=== PATIENT | male | born 1975 ===

== ENCOUNTER 2017-04-06 19:11 | Emergency (ER) | payer SELFPAY ==
[~2017-04-06] VITALS: Ht 172.7 cm; Wt 154.2 kg
[2017-04-06 19:18] VITALS: BP 166/108
[2017-04-06] MEDS ORDERED: MECL25TA27 PO (19:18)
--- NOTE | 2017-04-06 19:23 | ER Report ---
History and Physical Time Seen By MD: 19:23 Hx. of Stated Complaint: LEFT SIDED HEADACHE HPI/ROS CHIEF COMPLAINT: Headache HISTORY OF PRESENT ILLNESS: This is a 41-year-old male who presents to the emergency department with his for a left-sided headache. Patient states that over the last 2-3 months he's had this intermittent left-sided headache and dental pain and sinus pain. Patient states that he works in the [employer] and had a dentist to evaluate for possible infection and other dental issues which they said that he had none. Patient also states that he was seen by me in urgent care and thought maybe he had a sinus infection but doesn't sound like any imaging studies were done. Patient states tonight he woke up about 2 hours prior to arrival with a pretty severe left-sided headache wraps up on the top of his left scalp he points to pain along the temporal region. Patient states that he also has some sinus pressure. Patient denies nausea, vomiting, diarrhea , aches, chills or shortness of breath. REVIEW OF SYSTEMS: Constitutional: No fever, no chills. Eyes: No discharge. ENT: No sore throat. Cardiovascular: No chest pain, no palpitations. Respiratory: No cough, no shortness of breath. Gastrointestinal: No abdominal pain, no vomiting. Genitourinary: No hematuria. Musculoskeletal: No back pain. Skin: No rashes. Neurological: As above. Allergies: Coded Allergies: fexofenadine (Verified Allergy, Mild, RASH, 04/06/17) Home Meds Active Scripts Clindamycin Hcl (CLINDAMYCIN HCL) 300 Mg Capsule, 300 MG PO TID, #29 CAPSULE 0 Refills Prov:ALANA LE SENIOR IT RECRUITER-BC 04/06/17 Reported Medications Meclizine Hcl (MECLIZINE HCL) 25 Mg Tab.chew, 25 MG PO TID Y for HEADACHE, TAB.CHEW 04/06/17 Past Medical/Surgical History Solution has a past medical and surgical history of concussions, hypertension, multiple fractures, back fracture, chronic back pain, back surgery. Reviewed Nurses Notes: Yes Constitutional Vital Sign - Last 24 Hours 04/06/17 19:18 Temp 98.3 Pulse 91 Resp 14 B/P (MAP) 166/108 Pulse Ox 93 O2 Delivery Room Air Physical Exam General Appearance: The patient is alert, has no immediate need for airway protection and no signs of toxicity. Eyes: Pupils equal and round no pallor or injection. ENT, Mouth: Mucous membranes are moist. One single right upper molar. Inflammation and erythema to the left upper gums. Dental caries. TMs are intact , pearly bran, landmarks noted, no injection bilaterally. Mild maxillary sinus pressure with palpation but not overtly tender. Respiratory: There are no retractions, lungs are clear to auscultation. Cardiovascular: Regular rate and rhythm. Gastrointestinal: Abdomen is soft and non tender, no masses, bowel sounds normal. Neurological: Alert and oriented 4. Moving all cherries. Following all commands. No focal neuro deficits. Skin: Warm and dry, no rashes. Pain to the left temporal region with light palpation. Patient does have scalp tenderness on the left side. No open sores. Musculoskeletal: Neck is supple non tender. Extremities are nontender, nonswollen and have full range of motion. DIFFERENTIAL DIAGNOSIS: After history and physical exam differential diagnosis was considered for temporal arteritis, Lyme's disease, Woody's palsy, migraine headache, dental abscess and sinus infection. Medical Decision Making Data Points Result Diagram: 04/06/17195804/06/171958 Laboratory Hematology Test 04/06/17 19:59 Red Blood Count 5.94 M/uL (4.00-5.60) Mean Corpuscular Volume 86.2 fL (80.0-96.0) Mean Corpuscular Hemoglobin 29.3 pg (26.0-33.0) Mean Corpuscular Hemoglobin Concent 34.0 g/dL (32.0-36.0) Red Cell Distribution Width 14.2 % (11.5-14.5) Mean Platelet Volume 8.2 fL (7.2-11.1) Neutrophils (%) (Auto) 57.4 % (39.4-72.5) Lymphocytes (%) (Auto) 31.3 % (17.6-49.6) Monocytes (%) (Auto) 8.8 % (4.1-12.4) Eosinophils (%) (Auto) 1.9 % (0.4-6.7) Basophils (%) (Auto) 0.6 % (0.3-1.4) Nucleated RBC Relative Count (auto) 0.0 /100WBC Neutrophils # (Auto) 5.4 K/uL (2.0-7.4) Lymphocytes # (Auto) 3.0 K/uL (1.3-3.6) Monocytes # (Auto) 0.8 K/uL (0.3-1.0) Eosinophils # (Auto) 0.2 K/uL (0.0-0.5) Basophils # (Auto) 0.1 K/uL (0.0-0.1) Nucleated RBC Absolute Count (auto) 0.00 K/uL Sodium Level 139 mmol/L (137-145) Potassium Level 4.2 mmol/L (3.5-5.0) Chloride Level 103 mmol/L (98-107) Carbon Dioxide Level 23 mmol/L (22-30) Blood Urea Nitrogen 17 mg/dl (9-21) Creatinine 1.10 mg/dl (0.66-1.25) Glomerular Filtration Rate Calc > 60.0 Random Glucose 99 mg/dl (75-110) Calcium Level 8.9 mg/dl (8.4-10.2) Total Bilirubin 0.3 mg/dl (0.2-1.3) Aspartate Amino Transf (AST/SGOT) 23 U/L (0-35) Alanine Aminotransferase (ALT/SGPT) 41 U/L (0-56) Alkaline Phosphatase 97 U/L (0-126) C-Reactive Protein 1.3 mg/dl (<1.0) Total Protein 7.8 gm/dl (6.3-8.2) Albumin 3.7 g/dl (3.5-5.0) Chemistry Test 04/06/17 19:59 White Blood Count 9.5 k/uL (4.5-11.0) Red Blood Count 5.94 M/uL (4.00-5.60) Hemoglobin 17.4 g/dL (14.0-18.0) Hematocrit 51.2 % (42.0-52.0) Mean Corpuscular Volume 86.2 fL (80.0-96.0) Mean Corpuscular Hemoglobin 29.3 pg (26.0-33.0) Mean Corpuscular Hemoglobin Concent 34.0 g/dL (32.0-36.0) Red Cell Distribution Width 14.2 % (11.5-14.5) Platelet Count 264 K/uL (150-450) Mean Platelet Volume 8.2 fL (7.2-11.1) Neutrophils (%) (Auto) 57.4 % (39.4-72.5) Lymphocytes (%) (Auto) 31.3 % (17.6-49.6) Monocytes (%) (Auto) 8.8 % (4.1-12.4) Eosinophils (%) (Auto) 1.9 % (0.4-6.7) Basophils (%) (Auto) 0.6 % (0.3-1.4) Nucleated RBC Relative Count (auto) 0.0 /100WBC Neutrophils # (Auto) 5.4 K/uL (2.0-7.4) Lymphocytes # (Auto) 3.0 K/uL (1.3-3.6) Monocytes # (Auto) 0.8 K/uL (0.3-1.0) Eosinophils # (Auto) 0.2 K/uL (0.0-0.5) Basophils # (Auto) 0.1 K/uL (0.0-0.1) Nucleated RBC Absolute Count (auto) 0.00 K/uL Glomerular Filtration Rate Calc > 60.0 Calcium Level 8.9 mg/dl (8.4-10.2) Total Bilirubin 0.3 mg/dl (0.2-1.3) Aspartate Amino Transf (AST/SGOT) 23 U/L (0-35) Alanine Aminotransferase (ALT/SGPT) 41 U/L (0-56) Alkaline Phosphatase 97 U/L (0-126) C-Reactive Protein 1.3 mg/dl (<1.0) Total Protein 7.8 gm/dl (6.3-8.2) Albumin 3.7 g/dl (3.5-5.0) EKG/Imaging Imaging CT Head without contrast and CT sinuses Indication: Left-sided headache and sinus pain. Comparison: None available Technique: CT head: Axial CT images were obtained through the brain from the skull base to the vertex without administration of IV contrast. Technique: CT sinuses: Axial CT images are obtained through the sinuses. Reformatted coronal and sagittal images were reviewed. One of the following dose optimization techniques was utilized in the performance of this exam: Automated exposure control; adjustment of the mA and/ or kV according to the patient's size; or use of an iterative reconstruction technique. Specific details can be referenced in the facility's radiology CT exam operational policy. FINDINGS: CT head: No evidence of mass, mass effect, or midline shift. No acute intracranial hemorrhage or acute territorial infarction. Calvarium is grossly normal. CT sinuses: No acute osseous abnormality. Left greater than right mild mucosal thickening in the inferior aspects of the maxillary sinuses with probable small retention cyst on the left. Paranasal sinuses are otherwise clear. The patient's only remaining left maxillary molar projects into the left maxillary sinus. Large caries in the posterior left mandibular molar. Globes and orbits are grossly normal. Soft tissues are unremarkable. The visualized upper cervical spine is unremarkable. IMPRESSION: 1. No acute intracranial abnormality. 2. Left greater than right mild paranasal sinus disease. 3. The patient's only remaining left maxillary molar projects into the left maxillary sinus. 4. Large caries in the posterior left mandibular molar. Report Dictated By: Trung Becerra MD at 04/06/2017 8:33 PM Report E-Signed By: Trung Becerra MD at 04/06/2017 8:44 PM WSN:[id number] ED Course/Re-evaluation ED Course The patient was admitted to room. A history of physical were obtained. Differential diagnoses were considered. A CBC, CMP, CRP and ESR were obtained. A Lyme's disease titer was obtained. Lab studies unremarkable. A CT of the head and sinuses obtained. CT results showing no acute intracranial abnormalities. Left para nasal sinusitis, left maxillary molar projecting into the left maxillary sinus. Large caries in the posterior left mandibular molar. There is erythema and edema to the left upper gumline suggesting a possible abscess. The patient is very painful on the left side up into his left maxillary sinuses. Patient did have some dental work done recently, he states he wanted the tooth removed but the dentist suggested removing the filling and performing a root canal and then placing another filling which they did. Patient states he now is going to follow up with a dentist to have the tooth removed. I did review these results with the patient he is upset that he has this sinus infection that could be secondary to his chronic dental disease. The patient was offered pain medications for home patient declined. Patient will be sent home with 2 hydrocodone, was given 1 hydrocodone in the emergency department. He was also given a clindamycin tablet in the emergency department and a prescription for clindamycin was sent home with patient. The patient states he'll call a dentist tomorrow. He had no other questions or concerns at this time and was discharged home. Patient was in agreement with this plan of care. Decision to Disposition Date: Apr 06, 2017 Decision to Disposition Time: 21:25 Depart Departure Latest Vital Signs Vital Signs Date Time Temp Pulse Resp B/P (MAP) Pulse Ox O2 Delivery O2 Flow Rate FiO2 04/06/17 19:18 98.3 91 14 166/108 93 Room Air Impression: Primary Impression: Sinusitis Additional Impression: Pain, dental Condition: Improved Disposition: HOME OR SELF-CARE New Scripts Clindamycin Hcl (CLINDAMYCIN HCL) 300 Mg Capsule 300 MG PO TID, #29 CAPSULE 0 Refills Prov: ALANA LE-DICKSON 04/06/17 Patient Instructions: Dental Abscess (ED), Dental Caries (ED), Sinusitis (ED) Additional Instructions: Drink plenty of water. Get plenty of rest. Take the antibiotics as prescribed. Take ibuprofen or Tylenol as needed for pain. Follow-up as soon as possible with a dentist to have the tooth removed. Continue to monitor for worsening symptoms. May return to the emergency department for any other concerns or worsening symptoms. Problem Qualifiers Primary Impression: Sinusitis Sinusitis location: other Chronicity: acute Recurrence: not specified as recurrent Qualified Codes: J01.80 - Other acute sinusitis ALANA LE-BC Apr 06, 2017 19:23
[2017-04-06] MEDS ORDERED: ONDANSETRON 4 MG ODT TABDP SL ONE (20:10)
[2017-04-06 20:16] LABS: PLATELET COUNT, AUTOMATED 264 K/uL (150-450)
--- NOTE | 2017-04-06 20:48 | RADIOLOGY IMAGING REPORT ---
FACILITY: [facility] PATIENT NAME: Jeffery Aj : 1975 MR: [id number] V: [id number] EXAM DATE: ORDERING PHYSICIAN: ALANA LE TECHNOLOGIST: [place] [facility] [place]: Jeffery Aj : 1975 Visit/Account:[id number] Date of Sevice: 04/06/2017 CT Head without contrast and CT sinuses Indication: Left-sided headache and sinus pain. Comparison: None available Technique: CT head: Axial CT images were obtained through the brain from the skull base to the verte x without administration of IV contrast. Technique: CT sinuses: Axial CT images are obtained through the sinuses. Reformatted coronal and sagi ttal images were reviewed. One of the following dose optimization techniques was utilized in the performance of this exam: Autom ated exposure control; adjustment of the mA and/or kV according to the patient's size; or use of an i terative reconstruction technique. Specific details can be referenced in the facility's radiology C T exam operational policy. FINDINGS: CT head: No evidence of mass, mass effect, or midline shift. No acute intracranial hemorrhage or acute territorial infarction. Calvarium is grossly normal. CT sinuses: No acute osseous abnormality. Left greater than right mild mucosal thickening in the inferior aspects of the maxillary sinuses with probable small retention cyst on the left. Paranasal sinuses are otherwise clear. The patient's only remaining left maxillary molar projects into the left maxillary sinus. Large caries in the posterior left mandibular molar. Globes and orbits are grossly normal. Soft tissues are unremarkable. The visualized upper cervical spine is unremarkable. IMPRESSION: 1. No acute intracranial abnormality. 2. Left greater than right mild paranasal sinus disease. 3. The patient's only remaining left maxillary molar projects into the left maxillary sinus. 4. Large caries in the posterior left mandibular molar. Report Dictated By: Trung Becerra MD at 04/06/2017 8:33 PM Report E-Signed By: Trung Becerra MD at 04/06/2017 8:44 PM WSN:[id number]
--- NOTE | 2017-04-06 20:48 | RADIOLOGY IMAGING REPORT ---
[place] [facility] [place] Jeffery Aj : 1975 MR: [id number] V: [id number] EXAM DATE: ORDERING PHYSICIAN: ALANA LE TECHNOLOGIST: [place] [facility] [place] Patient: Jeffery Aj : 1975 Visit/Account:[id number] Date of Sevice: 04/06/2017 CT Head without contrast and CT sinuses Indication: Left-sided headache and sinus pain. Comparison: None available Technique: CT head: Axial CT images were obtained through the brain from the skull base to the verte x without administration of IV contrast. Technique: CT sinuses: Axial CT images are obtained through the sinuses. Reformatted coronal and sagi ttal images were reviewed. One of the following dose optimization techniques was utilized in the performance of this exam: Autom ated exposure control; adjustment of the mA and/or kV according to the patient's size; or use of an i terative reconstruction technique. Specific details can be referenced in the facility's radiology C T exam operational policy. FINDINGS: CT head: No evidence of mass, mass effect, or midline shift. No acute intracranial hemorrhage or acute territorial infarction. Calvarium is grossly normal. CT sinuses: No acute osseous abnormality. Left greater than right mild mucosal thickening in the inferior aspects of the maxillary sinuses with probable small retention cyst on the left. Paranasal sinuses are otherwise clear. The patient's only remaining left maxillary molar projects into the left maxillary sinus. Large caries in the posterior left mandibular molar. Globes and orbits are grossly normal. Soft tissues are unremarkable. The visualized upper cervical spine is unremarkable. IMPRESSION: 1. No acute intracranial abnormality. 2. Left greater than right mild paranasal sinus disease. 3. The patient's only remaining left maxillary molar projects into the left maxillary sinus. 4. Large caries in the posterior left mandibular molar. Report Dictated By: Trung Becerra MD at 04/06/2017 8:33 PM Report E-Signed By: Trung Becerra MD at 04/06/2017 8:44 PM WSN:[id number]
[2017-04-06] MEDS ORDERED: CLINDAMYCIN 150 MG CAP PO ONE (21:20)
[2017-04-06] MEDS ORDERED: APAP/HYDROCODONE 325/5 TAB PO ONE (21:20)
[2017-04-06] MEDS ORDERED: ACET/HYDROC 5/325MG TH ER ONLY 2 TAB/BOTTLE PO ONE (21:20)
[2017-04-06] MEDS ORDERED: ONDANSETRON 4 MG ODT TH SL ONE (21:20)
[2017-04-06] MEDS ORDERED: CLIN300C99 PO (21:31)
== END 2017-04-06 21:56 | disposition home or self-care (01) ==
LOC: ER 19:22
DX: J01.80 Other acute sinusitis (principal); K08.89 Other specified disorders of teeth and supporting structures
CPT/HCPCS: 36415; 70450; 70486; 85025; 85651; 86140; 86618; 99283; S0119; 82040; 82247; 82310; 82374; 82435; 82565; 82947; 84075; 84132; 84155; 84295; 84450; 84460; 84520